=== PATIENT | male | born 1985 | race Two or more races ===

== ENCOUNTER 2017-06-29 18:12 | Observation (INO) | payer OTHER ==
[~2017-06-29] VITALS: Ht 177.8 cm; Wt 79.4 kg
[2017-06-29 20:51] VITALS: BP 125/83
== END 2017-06-29 21:05 | disposition home or self-care (01) | DRG 101 ==
LOC: ER 18:12 → EDBD 18:12 → OVERFLOW 18:47 → ER 21:05
PROVIDERS: ADMIT Emergency Medicine; ATTEND Emergency Medicine
DX: G40.909 Epilepsy, unspecified, not intractable, without status epilepticus (principal)
CPT/HCPCS: 36415; 80164; 99285; G0378